=== PATIENT | male | born 1955 | race Caucasian/White ===

== ENCOUNTER 2019-03-03 18:38 | Emergency (ER) | payer OTHER ==
[~2019-03-03] VITALS: Ht 175.3 cm; Wt 125.2 kg
[2019-03-03 21:07] LABS: URINE BILIRUBIN NEGATIVE (Negative); URINE BLOOD NEGATIVE (Negative); URINE CLARITY CLEAR; URINE COLOR YELLOW; URINE GLUCOSE-RANDOM 1+ (Negative); URINE KETONES NEGATIVE (Negative); URINE LEUKOCYTES-REFLEX NEGATIVE (Negative); URINE NITRITE-REFLEX NEGATIVE (Negative); URINE PROTEIN NEGATIVE (Negative); URINE SPECIFIC GRAVITY 1.025 (1.005-1.030); URINE UROBILINOGEN 0.2 E.U./dl (0.2-1.0)
[2019-03-03 21:57] VITALS: BP 142/89
== END 2019-03-03 21:58 | disposition home or self-care (01) ==
LOC: M.ERS 18:38
PROVIDERS: Physician Assistant
DX: G89.29 Other chronic pain (principal); M54.5 Low back pain; M25.551 Pain in right hip; Z98.890 Other specified postprocedural states

== ENCOUNTER 2019-05-10 13:16 | Emergency (ER) | payer OTHER ==
[~2019-05-10] VITALS: Ht 175.3 cm; Wt 122.5 kg
[2019-05-10] MEDS ORDERED: NEURONTIN 300M300 M2 (13:26)
[2019-05-10] MEDS ORDERED: PERCOCET 5-3251 EACH PO (13:27)
[2019-05-10] MEDS ORDERED: JANUMET 50-5001 EACH PO (13:27)
[2019-05-10] MEDS ORDERED: TIZANIDINE HCL4 M1 PO (13:27)
[2019-05-10] MEDS ORDERED: ASA81BEC PO (13:28)
[2019-05-10] MEDS ORDERED: LANTUS SUBQ (13:28)
[2019-05-10] MEDS ORDERED: GENFIBROZIL (13:28)
[2019-05-10] MEDS ORDERED: TOPROL XL50 MG PO (13:30)
[2019-05-10] MEDS ORDERED: MOBIC7.5 MG PO (13:31)
[2019-05-10 14:09] LABS: BE 1.2 mmol/L (-2 to +3); PCO2 41.8 mmHg (35.0-45.0); pH 7.411 (7.340-7.450)
[2019-05-10 14:21] LABS: ABSOLUTE BASOPHILS 0.1 thou/uL (0.0-0.2); ABSOLUTE EOSINOPHILS 0.1 thou/uL (0.0-0.7); ABSOLUTE LYMPHOCYTES 1.5 thou/uL (0.8-5.3); ABSOLUTE MONOCYTES 1.2 thou/uL (0.0-1.2); ABSOLUTE NEUTROPHILS 5.3 thou/uL (1.6-8.1); BASOPHILS 0.8 %; EOSINOPHILS 1.3 %; HEMOGLOBIN 14.1 gm/dL (14.0-18.0); LYMPHOCYTES 18.4 %; MCHC 32.8 g/dL (28.0-37.0); MCV 85.3 fL (80.0-100.0); MONOCYTES 14.4 %; MPV 7.8 fl. (7.2-11.1); NUCLEATED RBCS 0 /100WBC; PLATELET COUNT* 273 thou/uL (150-400); POLYS 65.1 %; RBC 5.03 mil/uL (4.50-6.00); RDW-CV 15.1 % (10.5-14.5); WBC 8.1 thou/uL (4.0-11.0)
[2019-05-10 14:32] LABS: CALCIUM 9.2 mg/dL (8.5-10.1); CREATININE 1.2 mg/dL (0.6-1.3); POTASSIUM 4.5 mmol/L (3.5-5.1)
[2019-05-10 14:36] LABS: ALBUMIN 3.4 g/dL (3.4-5.0); MAGNESIUM 2.2 mg/dL (1.8-2.4); TOTAL BILIRUBIN 0.4 mg/dL (<0.1-1.0); TOTAL PROTEIN 7.8 g/dL (6.4-8.2)
[2019-05-10] MEDS ORDERED: MEDROLDOSEPACK PO (16:04)
[2019-05-10] MEDS ORDERED: AMOXICILLIN875 MG PO (16:04)
[2019-05-10] MEDS ORDERED: IPRAT-ALBUT 0.5-3 ML INH (16:25)
[2019-05-10] MEDS ORDERED: NEBULIZER MISCELL (16:25)
[2019-05-10 17:00] VITALS: BP 127/82
== END 2019-05-10 17:00 | disposition home or self-care (01) ==
LOC: M.ERS 13:16
PROVIDERS: Personal Emergency Response Attendant
DX: J06.9 Acute upper respiratory infection, unspecified (principal); R60.0 Localized edema; R41.0 Disorientation, unspecified; G89.29 Other chronic pain

== ENCOUNTER 2020-06-12 09:35 | Emergency (ER) | payer OTHER ==
[~2020-06-12] VITALS: Ht 175.3 cm; Wt 122.5 kg
[~2020-06-12 09:35] MED LIST: AMOXICILLIN875 MG PO; ASA81BEC PO; GENFIBROZIL; IPRAT-ALBUT 0.5-3 ML INH; JANUMET 50-5001 EACH PO; LANTUS SUBQ; MEDROLDOSEPACK PO; MOBIC7.5 MG PO; NEBULIZER MISCELL; NEURONTIN 300M300 M2; PERCOCET 5-3251 EACH PO; TIZANIDINE HCL4 M1 PO; TOPROL XL50 MG PO
[2020-06-12] MEDS ORDERED: PREDNISONE 20 M20 M1 PO (10:27)
[2020-06-12] MEDS ORDERED: LIDODERM1 EACH TOP (10:27)
[2020-06-12 10:35] VITALS: BP 140/118
== END 2020-06-12 10:35 | disposition home or self-care (01) ==
LOC: M.ERS 09:35
DX: G89.29 Other chronic pain (principal); M54.5 Low back pain; Z98.890 Other specified postprocedural states; Z79.899 Other long term (current) drug therapy; Z79.82 Long term (current) use of aspirin